=== PATIENT | female | born 1970 | race Caucasian/White ===

== ENCOUNTER 2019-12-26 00:26 | Outpatient (CLI) | payer BC, SELFPAY ==
[2019-12-26 18:12] LABS: SARS-CoV-2 RNA PCR Negative
== END 2019-12-26 00:27 | disposition home or self-care (01) ==
LOC: ANHCOVIDDT 00:26
PROVIDERS: PCP Family Medicine; Visit Provider Internal Medicine Gastroenterology
DX: Z01.812 Encounter for preprocedural laboratory examination (principal); Z20.828 Contact with and (suspected) exposure to other viral communicable diseases
CPT/HCPCS: 87635; C9803; U0003

== ENCOUNTER 2019-12-28 02:47 | Day surgery (SDC) | payer BC, SELFPAY ==
[2019-12-23 09:50] VITALS: BMI 36.6
--- NOTE | 2019-12-28 07:20 | WPDANESEPPF ---
Anes - Initial Pre Proc Eval Procedure: Operation Date: 12/28/19 09:00 Proposed Procedures p Colonoscopy - Ubaldo Sal MD Date/Time: 12/28/19 07:20 Surgeon: Ubaldo Sal MD Pre Op Diagnosis: Diarrhea Patient Data Age: 49 Gender: F Height: 1.65 m Weight: 100 kg Allergies Allergy/AdvReac Type Severity Reaction Status Date / Time Sulfa (Sulfonamide Allergy Mild Itchy rash Verified 12/28/19 08:13 Antibiotics) Home Medications Medication Instructions Recorded Confirmed Type atorvastatin 40 mg tablet 40 mg PO DAILY 11/10/19 12/23/19 History escitalopram oxalate 10 mg tablet 10 mg PO DAILY 11/10/19 12/23/19 History nabumetone 750 mg tablet 750 mg PO BID 11/10/19 12/23/19 History docosahexaenoic acid [Algal 200 mg PO DAILY 12/23/19 12/23/19 History [place]-3 DHA] cohkqochpcdg-rrx-ossv-FA-vit K 1 tablet PO DAILY 12/23/19 12/23/19 History [Adults Multivitamin] Patient hx anesthesia problems: none Family hx anesthesia problems: none PMFSH Past Medical History Medical History (Updated 12/27/19 @ 11:46 by Will Gonzalez DO) Bipolar disorder Hyperlipidemia Osteoarthritis Surgical History Surgical History (Updated 12/27/19 @ 11:46 by Will Gonzalez DO) History of tonsillectomy Social History Social History Smoking packs per day: 0.5 Smoking cigarettes per day: 10.0 Years smoked: 30 Smoking pack-years: 15.00 Smoking status: Former smoker Tobacco type: cigarettes Smoking end date: 09/21/18 Alcohol intake: current Drinks per week: 12 Substance use: never Substance use type: does not use Living arrangements: with family Spiritual care concerns: No Anes - Eval Final PreProcedure Day of Procedure 12/28/19 07:20 Patient weight: obese Heart: regular rate and rhythm Lungs: clear to auscultation and normal air movement Airway: Mallampati scale class II Neurological: alert and oriented Last oral intake: >/= 8 hours ASA classification: III Emergent: no Anesthetic plan: proceed Anesthesia type and monitoring: general GIVS and standard monitoring Informed Consent: The patient's anesthetic plan and its attendant risks and benefits were discussed with the patient/family/POA. Questions were solicited and answers provided to the satisfaction of the patient/family/POA.
[2019-12-28] MEDS: LACTATED RINGERS 1,000 ML 150 ML IV CONT (08:31)
[2019-12-28 08:32] VITALS: BP 129/81; PULSE 67; RESP 18; TEMP 36.4; O2SAT 97; BMI 37.0
--- NOTE | 2019-12-28 09:02 | PM.HPGS ---
History of Present Illness History of Present Illness Consent: Risks, benefits, and alternatives have been discussed and questions answered. Patient agrees to proceed with procedure. Chief complaint: Diarrhea Narrative: Casi Bejarano is a 49 year old female here for first colonoscopy, also diarrhea for few months but mild symptoms. Review of Systems Constitutional: Constitutional: Denies headache(s) and Denies weakness Eyes: Eyes: Denies blurry vision ENT: Reports Normal hearing present, Denies headache(s) and Denies neck pain Cardiovascular: Cardiovascular: Denies chest pain and Denies dyspnea Respiratory: Respiratory: Denies dyspnea Gastrointestinal: Gastrointestinal: Reports no additional gastrointestinal complaints Genitourinary: Genitourinary: Denies dysuria Musculoskeletal: Musculoskeletal: Denies neck pain Integumentary/Breasts: Skin/Breast: Denies dry skin Neurologic: Reports Normal hearing present, Denies headache(s) and Denies weakness Psychiatric: Psychiatric: Denies anxiety Endocrine: Endocrine: Denies change in body appearance Hematologic/Lymphatic: Hematologic/Lymphatic: Denies easy bleeding Allergic/Immunologic: Allergic/Immunologic: Denies urticaria PMFSH Past Medical History Medical History (Updated 12/28/19 @ 09:03 by Ubaldo Sal MD) Bipolar disorder Colon cancer screening Diarrhea Hyperlipidemia Osteoarthritis Surgical History Surgical History (Updated 12/27/19 @ 11:46 by Will Gonzalez DO) History of tonsillectomy Social History Social History Smoking packs per day: 0.5 Smoking cigarettes per day: 10.0 Years smoked: 30 Smoking pack-years: 15.00 Smoking status: Former smoker Tobacco type: cigarettes Smoking end date: 09/21/18 Alcohol intake: current Drinks per week: 12 Substance use: never Substance use type: does not use Living arrangements: with family Spiritual care concerns: No Meds Home Medications and Allergies Home Medications Medication Instructions Recorded Confirmed Type atorvastatin 40 mg tablet 40 mg PO DAILY 11/10/19 12/23/19 History escitalopram oxalate 10 mg tablet 10 mg PO DAILY 11/10/19 12/23/19 History nabumetone 750 mg tablet 750 mg PO BID 11/10/19 12/23/19 History docosahexaenoic acid [Algal 200 mg PO DAILY 12/23/19 12/23/19 History [place]-3 DHA] qpegrmssaqgr-trl-rtve-FA-vit K 1 tablet PO DAILY 12/23/19 12/23/19 History [Adults Multivitamin] Allergies Allergy/AdvReac Type Severity Reaction Status Date / Time Sulfa (Sulfonamide Allergy Mild Itchy rash Verified 12/28/19 08:13 Antibiotics) Vital Signs Vital Signs - 24 hr 12/28/19 08:32 Temperature 97.5 F L Pulse Rate 67 Respiratory Rate 18 Blood Pressure 129/81 Pulse Oximetry 97 Exam Const: General: comfortable and no acute distress HENMT: General nose exam: Normal nares present Eyes: General: appearance normal, both eyes and all related structures Neck: Neck: no JVD Resp: Auscultation: clear to auscultation bilaterally Cardio: Rate: regular rate Rhythm: regular rhythm GI: Inspection: non-distended GI Palp: Yes Soft to palpation Skin: General skin exam: normal color Neuro: General: gait normal Speech: normal speech Extrem: General: normal to inspection Psych: Mental Status: mental status grossly normal Assessment and Plan Assessment and plan (1) Diarrhea: Code(s): R19.7 - Diarrhea, unspecified Status: Acute (2) Colon cancer screening: Code(s): Z12.11 - Encounter for screening for malignant neoplasm of colon Status: Acute Assessment and Plan: will proceed with colonoscopy
[2019-12-28 09:23] VITALS: BP 128/77; PULSE 66; RESP 19; O2SAT 97
[2019-12-28 09:33] VITALS: BP 123/76; PULSE 68; RESP 18; O2SAT 97
== END 2019-12-28 09:50 | disposition home or self-care (01) ==
PROVIDERS: PCP Family Medicine; Visit Provider Internal Medicine Gastroenterology
PROC: 0DJD8ZZ Inspection of Lower Intestinal Tract, Via Natural or Artificial Opening Endoscopic (ICD-10-PCS; CPT 45378; principal; 2019-12-28 09:00)
DX: Z12.11 Encounter for screening for malignant neoplasm of colon (principal); R19.7 Diarrhea, unspecified; K64.8 Other hemorrhoids; E78.5 Hyperlipidemia, unspecified; F31.9 Bipolar disorder, unspecified; Z87.891 Personal history of nicotine dependence; E66.9 Obesity, unspecified; Z68.37 Body mass index [BMI] 37.0-37.9, adult
CPT/HCPCS: 45380; 88305; J2704; J7120

== ENCOUNTER 2023-03-28 09:03 | Emergency (ER) | payer BC, SELFPAY ==
[2023-03-28] VITALS (14 sets, daily range): BP systolic 127–150; BP diastolic 67–99; PULSE 79–87; RESP 16–18; TEMP 36.6; O2SAT 93–97
--- NOTE | ~2023-03-28 | CT_ITS ---
EXAMINATION: CT abdomen pelvis w con DATE: 03/28/2023 10:26 INDICATION: Right upper quadrant abdominal pain for over a year, worsening over the past month, with nausea and fever intermittently TECHNIQUE: Computed tomography (CT) of the abdomen and pelvis was performed with 100 CC Omnipaque 350 intravenous contrast. Automated exposure control and iterative reconstruction technique were employe d. Exam dose: 1232.30 mGy-cm total exam DLP. COMPARISON: None. FINDINGS: The lung bases are clear. Normal heart size. No pericardial or pleural effusion. There is hepatic steatosis. No hepatic, splenic, pancreatic, and adrenal or suspicious or renal space -occupying mass lesion is detected. 1.6 cm right renal cyst. The gallbladder appears unremarkable. No bile duct or pancreatic duct dilatation. No urinary tract ca lculus or hydroureteronephrosis. There is a focal calcification, likely atherosclerotic, the left milton al hilum. There is uterine enlargement millimeters measuring up to 12 cm vertical dimension, the uterine fundus up to 6.8 cm AP dimension. Normal caliber abdominal aorta. No intraperitoneal or retroperitoneal or pelvic mass lesion or adenop athy or ascites. Normal appendix. No bowel obstruction, bowel wall thickening, pneumatosis or intraperitoneal free air . Degenerative changes of the thoracic and lumbar spine. IMPRESSION: Normal appendix Hepatic steatosis Uterine enlargement Reviewed, dictated and finalized at [facility]. Reviewed, dictated and finalized at [facility] [employer]
--- NOTE | 2023-03-28 09:21 | ECG_ITS ---
Measurements Intervals [place] Rate: 77 P: 12 HI: 164 QRS: 31 QRSD: 85 T: 47 QT: 385 QTc: 436 Interpretive Statements SINUS RHYTHM BASELINE ARTIFACT- I, II, III, AVF, V4 NORMAL ECG NO PREVIOUS ECG AVAILABLE FOR COMPARISON Electronically Signed On 03-28-2023 13:48:13 [employer] by Praveen Ferrara D.O.
[2023-03-28] MEDS: ONDANSETRON INJ 4 MG/2 ML VIAL IV PUSH (09:37)
[2023-03-28] MEDS: SODIUM CHLORIDE 0.9% IV 1,000 ML 999 ML IV CONT (09:38)
[2023-03-28 09:41] LABS: Basophils Absolute Auto 0.05 K/mm3 (0.00-0.10); Basophils Percent Auto 0.7 % (0.0-1.0); Eosinophils Percent Auto 1.5 % (1.0-6.0); Hematocrit 34.1 % (35.0-49.0); Immature Granulocyte Absolute 0.04 K/mm3 (0.00-0.00); Immature Granulocyte Percent A 0.6 % (0.0-0.0); Lymphocytes Absolute Auto 1.97 K/mm3 (1.10-4.50); Mean Corpuscular HGB Conc 32.3 g/dL (32.0-36.0); Mean Corpuscular Hemoglobin 29.5 pg (27.0-31.0); Mean Corpuscular Volume 91.4 fL (78.0-102.0); Mean Platelet Volume 8.8 fl (9.2-11.8); Monocytes Absolute Auto 0.57 K/mm3 (0.10-0.90); Monocytes Percent Auto 8.4 % (2.0-11.0); Neutrophils Absolute Auto 4.1 K/mm3 (1.7-7.2); Neutrophils Percent Auto 59.8 % (50.0-70.0); Platelet Count Result 341 K/mm3 (150-420); Red Blood Count 3.73 M/mm3 (4.20-5.40); Red Cell Distribution Width 12.4 % (11.6-14.4); White Blood Count 6.8 K/mm3 (4.8-10.8)
[2023-03-28 09:42] LABS: Appearance Urine Clear (Clear); Bilirubin Urine Negative (Negative); Blood Urine Trace-Intact (Negative); Color Urine Yellow (Yellow); Glucose Urine UA 2+ (Negative); Ketones Urine Trace (Negative); Leukocyte Esterase Ur Negative LEU/UL (Negative); Nitrate Urine Negative (Negative); Protein Urine Trace (Negative); Specific Grav Ur >= 1.030 (1.010-1.020); Urobilinogen Urine 0.2 mg/dL (0.2-1.0)
[2023-03-28 09:47] LABS: Add Urine Microscopic? YES; Bacteria Urine Trace /hpf; Mucus Urine Few /lpf; RBC Urine 0-2 /hpf (0-2); Squamous Epithelial Cell Urine Few /hpf (Few); WBC Urine None seen /hpf (0-3)
[2023-03-28 09:53] LABS: INR 0.9; Partial Thromboplastin Time 27.6 SEC (23.90-30.70); Prothrombin Time 10.4 Seconds (9.50-12.10)
[2023-03-28 09:57] LABS: Alanine Aminotransferase 21 U/L (14-59); Albumin Level 3.8 g/dL (3.4-5.0); Alkaline Phosphatase 67 U/L (46-116); Anion Gap 14 mmol/L (8-16); Aspartate Amino Transferase 13 U/L (15-37); Bilirubin,Total 0.2 mg/dL (0.00-1.00); Blood Urea Nitrogen 19 mg/dL (7-18); Calcium 9.4 mg/dL (8.5-10.1); Carbon Dioxide 22 mmol/L (21-32); Chloride 99 mmol/L (98-108); Estimated CRCL calculation 69 ml/min; Estimated Glomerular Filt Rate > 60; Glucose 249 mg/dL (70-99); Lipase 37 U/L (16-77); Osmolality Calculated 290 mOsm/kg (285-295); Sodium 135 mmol/L (136-145); Total Protein 7.7 g/dL (6.4-8.2); Troponin I 5.6 ng/L (0.00-60.4)
[2023-03-28 10:00] LABS: Lactic Acid Reflex 2.3 mmol/L (0.4-2.0)
--- NOTE | 2023-03-28 11:31 | ED.ABDPAIN ---
HPI - Abdominal Pain General Chief Complaint: Abdominal Pain Stated Complaint: abdominal pain. Time Seen by Provider: 03/28/23 09:19 Source: patient Mode of arrival: ambulatory Limitations: no limitations History of Present Illness HPI narrative: this is a 53-year-old female that presents with right upper quadrant abdominal pain with nausea she rates her pain about an 8/10 with no diarrhea constipation no fever chills no chest pain or shortness of breath. Patient was scheduled for a HIDA scan but had to cancel because she was diagnosed with COVID. Otherwise no vomiting does have nausea with her abdominal discomfort. There is no dysuria no flank pain no hematuria. MD elicited complaint: abdominal pain Pertinent past history: none Onset (ago): week(s) Pain Consistency: intermittent Location: RUQ Severity: moderate Pain scale (0-10): 8 Quality: aching Radiation: RUQ Related Data Home Medications Medication Instructions Recorded Confirmed atorvastatin 40 mg tablet 80 mg PO DAILY 11/10/19 03/28/23 escitalopram oxalate 10 mg tablet 20 mg PO DAILY 11/10/19 03/28/23 multivit with minerals-iron 18 1 tablet PO DAILY 12/23/19 03/28/23 mg-folic ac 400 mcg-vit K 25 mcg tablet (Adults Multivitamin) metformin 1,000 mg tablet 1,000 mg PO BID 06/06/22 03/28/23 dulaglutide 3 mg/0.5 mL 3 mg subcut WEEKLY 03/28/23 03/28/23 subcutaneous pen injector (Trulicity) famotidine 40 mg tablet 40 mg PO DAILY 03/28/23 03/28/23 fenofibrate micronized 134 mg 134 mg PO DAILY 03/28/23 03/28/23 capsule sitagliptin phosphate 100 mg 100 mg PO DAILY 03/28/23 03/28/23 tablet (Januvia) Allergies Allergy/AdvReac Type Severity Reaction Status Date / Time Sulfa (Sulfonamide Allergy Mild Itchy rash Verified 03/28/23 09:09 Antibiotics) Review of Systems Review of Systems: All systems reviewed & are unremarkable except as noted in HPI and below PMFSH Past Medical History Medical History Bipolar disorder Colon cancer screening Diarrhea Hyperlipidemia Osteoarthritis Surgical History Surgical History History of tonsillectomy Social History Social History Smoking packs per day: 0.5 Smoking cigarettes per day: 10.0 Years smoked: 30 Smoking pack-years: 15.00 Smoking status: Former smoker Tobacco type: cigarettes Smoking end date: 09/21/18 Alcohol intake: current Drinks per week: 12 Substance use: never Substance use type: does not use Living arrangements: with family Spiritual care concerns: No Exam Const: General: healthy appearing Nutritional Appearance: well nourished Orientation/consciousness: patient oriented x3 Limitations: no limitations Neck: Neck: normal visual inspection, no lymphadenopathy and no meningeal signs Chest: Chest palpation & inspection: normal inspection of the chest Resp: Effort & Inspection: normal respiratory effort Auscultation: clear to auscultation bilaterally Cardio: Rate: regular rate Rhythm: regular rhythm GI: GI Palp: Yes Soft to palpation and Yes Tenderness to palpation present (GI) Auscultation: normal bowel sounds : General: Yes bladder normal to palpation Back/Spine/Pelvis: Back: no CVA tenderness Skin: General skin exam: normal color Rashes: no rashes Neuro: General: patient oriented x3, moves all extremities and no meningeal signs Course Course Emergency Course: Labs reviewed with patient, patient declined pain medication at this time but was nauseated received Zofran IV. Labs reviewed with patient which was unremarkable, had a CT scan performed which showed no gallbladder distension or gall duct distention or inflammation, was significant was hepatic steatosis. Vital Signs Vital signs: Vital Signs Temperature 36.6 C 03/28/23 09:08 Pulse Rate 84 03/28/23
[2023-03-28 12:30] LABS: Reflex Lactic Acid Yes or No No Lactic Reflex
== END 2023-03-28 12:02 | disposition home or self-care (01) ==
PROVIDERS: Emergency Provider Emergency Medicine; PCP Family Medicine
DX: K76.0 Fatty (change of) liver, not elsewhere classified (principal); R10.11 Right upper quadrant pain; E78.5 Hyperlipidemia, unspecified; Z79.899 Other long term (current) drug therapy; Z87.891 Personal history of nicotine dependence
CPT/HCPCS: 36415; 74177; 80053; 81001; 83605; 83690; 84484; 85025; 85610; 85730; 93005; 96361; 96374; 99284; J2405; J7030; Q9967